=== PATIENT | female | born 1970 | race Caucasian/White ===

== ENCOUNTER → 2019-02-28 | Outpatient (CLI) | payer BC ==
[~2019-02-28] MED LIST: ALPR.5 PO; ASPI81EC PO; ESCI10 PO; LISHYD1012 PO; METF500 PO; NORETHINDRONE PO; OMEP20ER PO; PROM25 PO; Vitamin D PO
[2019-02-28 18:15] LABS: BASOPHILS ABSOLUTE AUTO 0.02 K/mm3 (0.00-0.23); BASOPHILS PERCENT AUTO 0 % (0-2); EOSINOPHILS ABSOLUTE AUTO 0.12 K/mm3 (0.00-0.68); EOSINOPHILS PERCENT AUTO 2 % (0-6); Hematocrit 37.4 % (33.0-51.0); IMMATURE GRAN ABSOLUTE AUTO 0.06 K/mm3 (0.00-0.10); IMMATURE GRAN PERCENT AUTO 1 % (0-1); LYMPHOCYTES ABSOLUTE AUTO 1.61 K/mm3 (0.84-5.20); LYMPHOCYTES PERCENT AUTO 21 % (21-46); MONOCYTES ABSOLUTE AUTO 0.42 K/mm3 (0.16-1.47); MONOCYTES PERCENT AUTO 6 % (4-13); Mean Corpuscular HGB Conc 34.8 g/dL (31.5-36.5); Mean Corpuscular Volume 92 fL (80-100); NEUTROPHILS ABSOLUTE AUTO 5.33 K/mm3 (1.96-9.15); NEUTROPHILS PERCENT AUTO 70 % (41-73); RDW Coefficient Variation 12.6 % (11.7-14.2); RDW Standard Deviation 42.4 fL (35.1-46.3); Red Blood Cell Count 4.06 M/mm3 (3.80-5.20); White Blood Cell Count 7.56 K/mm3 (4.00-11.30)
[2019-02-28 18:24] LABS: Mean Platelet Volume 10.1 fL (9.1-12.4); Platelet Count 312 K/mm3 (150-400)
[2019-02-28 18:35] LABS: Alanine Aminotransfer (ALT/SGP 26 U/L (12-78); Albumin, Blood 3.7 g/dL (3.4-5.0); Albumin/Globulin Ratio 1.1 (0.8-1.8); Alk Phos 80 U/L (40-126); Anion Gap 8 mmol/L (6-16); Aspartate Aminotrans (AST/SGOT 18 U/L (12-37); Bilirubin, Total 0.4 mg/dL (0.1-1.0); Blood Urea Nitrogen 10 mg/dL (8-24); Bun/Creatinine Ratio 15.6 (12.0-20.0); CO2, Blood 26 mmol/L (21-32); Chloride, Blood 102 mmol/L (98-108); Creatinine, Blood 0.64 mg/dL (0.40-1.00); Globulin, Blood 3.4 g/dL (2.2-4.0); Glomerular Filtration Rate >60 (60-); Glucose, Blood 106 mg/dL (70-99); Potassium, Blood 4.2 mmol/L (3.5-5.5); Sodium, Blood 136 mmol/L (136-145); Thyroid Stimulating Hormone 4.468 uIU/mL (0.360-4.800); Total Protein, Blood 7.1 g/dL (6.4-8.2)
== END | disposition home or self-care (01) ==
LOC: LAB SHORT 17:48 → LAB EV 17:48
PROVIDERS: Physician Assistant
DX: R60.0 Localized edema (principal); R63.5 Abnormal weight gain
CPT/HCPCS: 80053; 83880; 84443; 85025

== ENCOUNTER → 2019-07-17 | Outpatient (CLI) | payer BC ==
[2019-07-17 11:29] LABS: BASOPHILS ABSOLUTE AUTO 0.02 K/mm3 (0.00-0.23); BASOPHILS PERCENT AUTO 1 % (0-2); EOSINOPHILS ABSOLUTE AUTO 0.08 K/mm3 (0.00-0.68); EOSINOPHILS PERCENT AUTO 2 % (0-6); Hematocrit 38.5 % (33.0-51.0); Hemoglobin 13.4 g/dL (11.5-16.0); IMMATURE GRAN ABSOLUTE AUTO 0.03 K/mm3 (0.00-0.10); IMMATURE GRAN PERCENT AUTO 1 % (0-1); LYMPHOCYTES ABSOLUTE AUTO 0.91 K/mm3 (0.84-5.20); LYMPHOCYTES PERCENT AUTO 24 % (21-46); MONOCYTES ABSOLUTE AUTO 0.41 K/mm3 (0.16-1.47); MONOCYTES PERCENT AUTO 11 % (4-13); Mean Corpuscular HGB 31.5 pg (26.0-34.0); Mean Corpuscular HGB Conc 34.8 g/dL (31.5-36.5); Mean Corpuscular Volume 90 fL (80-100); NEUTROPHILS PERCENT AUTO 62 % (41-73); Platelet Count 275 K/mm3 (150-400); RDW Coefficient Variation 11.9 % (11.7-14.2); Red Blood Cell Count 4.26 M/mm3 (3.80-5.20); White Blood Cell Count 3.85 K/mm3 (4.00-11.30)
[2019-07-17 11:33] LABS: Anion Gap 11 mmol/L (6-16); Blood Urea Nitrogen 6 mg/dL (8-24); Bun/Creatinine Ratio 7.8 (12.0-20.0); CO2, Blood 26 mmol/L (21-32); Calcium, Blood 8.7 mg/dL (8.5-10.1); Chloride, Blood 97 mmol/L (98-108); Creatinine, Blood 0.77 mg/dL (0.40-1.00); Glomerular Filtration Rate >60 (60-); Glucose, Blood 284 mg/dL (70-99); Potassium, Blood 3.3 mmol/L (3.5-5.5); Sodium, Blood 134 mmol/L (136-145)
== END ==
LOC: LAB SHORT 11:23 → LAB EV 11:23
PROVIDERS: Physician Assistant Surgical
DX: R11.10 Vomiting, unspecified (principal)
CPT/HCPCS: 80048; 85025

== ENCOUNTER → 2023-03-05 | Outpatient (CLI) | payer SELFPAY | END | disposition home or self-care (01) | LOC: PLD 14:21 → LAB SHORT 14:21 | DX: L92.8 Other granulomatous disorders of the skin and subcutaneous tissue (principal) | CPT/HCPCS: 88305; 88313 ==

== ENCOUNTER → 2024-03-14 | Outpatient (CLI) | payer OTHER | LOC: LAB SHORT 14:13 → LAB 14:13 | DX: K65.1 Peritoneal abscess (principal) | CPT/HCPCS: 87070; 87075; 87076; 87077; 87185; 87205 ==

== ENCOUNTER 2024-04-01 07:41 | Day surgery (SDC) | payer OTHER ==
[~2024-04-01] VITALS: Ht 160 cm; Wt 100.4 kg
[2024-04-01] MEDS ORDERED: ATOMOXETINE HC100 MG PO (08:15)
[2024-04-01] MEDS ORDERED: OZEMPIC1 MG/0.72 SQ (08:15)
[2024-04-01] MEDS ORDERED: PIOGLITAZONE HC15 MG PO (08:15)
[2024-04-01] MEDS ORDERED: METFORMIN HCL500 M3 PO (08:15)
[2024-04-01] MEDS ORDERED: TRAZ50 PO (08:16)
[2024-04-01] MEDS ORDERED: FERROUS GLUCON324 M7 PO (08:16)
[2024-04-01] MEDS ORDERED: Lactated Ringer's 1,000 ML IV ONE ×2 (08:16→08:20)
[2024-04-01] MEDS ORDERED: propofoL 40 ML IV ONE (08:16)
[2024-04-01 09:43] VITALS: BP 124/80
== END 2024-04-01 09:34 | disposition home or self-care (01) ==
LOC: ORSCSDS 07:41
PROVIDERS: Surgery
PROC: 0DBN8ZX Excision of Sigmoid Colon, Via Natural or Artificial Opening Endoscopic, Diagnostic (ICD-10-PCS; principal; 2024-04-01 08:45)
DX: Z12.11 Encounter for screening for malignant neoplasm of colon (principal); K63.5 Polyp of colon; K57.30 Diverticulosis of large intestine without perforation or abscess without bleeding; K64.0 First degree hemorrhoids; K64.1 Second degree hemorrhoids; E11.36 Type 2 diabetes mellitus with diabetic cataract; F32.A Depression, unspecified; I10 Essential (primary) hypertension; E78.5 Hyperlipidemia, unspecified; F90.9 Attention-deficit hyperactivity disorder, unspecified type; E66.01 Morbid (severe) obesity due to excess calories; Z68.41 Body mass index [BMI] 40.0-44.9, adult; Z79.84 Long term (current) use of oral hypoglycemic drugs; Z79.899 Other long term (current) drug therapy
CPT/HCPCS: 82947; 88305; J2704; J7120